=== PATIENT | female | born 1995 | race Caucasian/White ===

== ENCOUNTER 2022-08-20 01:15 | Emergency (ER) | payer SELFPAY ==
[2022-08-20 01:27] VITALS: BMI 22.6
[2022-08-20 01:30] VITALS: BP 147/88; PULSE 113; RESP 16; TEMP 37.2; O2SAT 99
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
[2022-08-20] MEDS: acetaminophen 500 mg Tablet 1000 MG PO (01:48)
[2022-08-20] MEDS: ketorolac 30 mg/mL INJ IM (02:47)
[2022-08-20] MEDS: amoxicillin-clav 500-125 mg Tablet 1 TAB PO (02:48)
[2022-08-20 02:56] VITALS: BP 127/85; PULSE 95; RESP 18; O2SAT 98
--- NOTE | 2022-08-28 15:02 | DCPLANNER ---
TCM called patient due to no primary care physician - no answer at this time.
== END 2022-08-20 02:59 | disposition home or self-care (01) ==
PROVIDERS: Emergency Provider Physician Assistant
DX: S06.9X9A Unspecified intracranial injury with loss of consciousness of unspecified duration, initial encounter (principal); S02.2XXB Fracture of nasal bones, initial encounter for open fracture; S00.83XA Contusion of other part of head, initial encounter; Y04.2XXA Assault by strike against or bumped into by another person, initial encounter
CPT/HCPCS: 70450; 70486; 96372; 99284; J1885